=== PATIENT | female | born 1950 | race Caucasian/White ===

== ENCOUNTER → 2018-03-14 | Outpatient (CLI) | payer MEDICARE ==
[~2018-03-14] MED LIST: REGADENOSON 0.4 MG/5 ML SYR IV ONE; SINCALIDE 3 MCG/VIAL INJ ONE
--- NOTE | 2018-03-15 09:49 | Cardiology Report ---
DATE OF STUDY: March 14, 2018 LEXISCAN NUCLEAR STRESS TEST INDICATIONS: Chest pain. DESCRIPTION OF PROCEDURE: After informed consent, patient was brought to the stress lab. She was given 11 mCi of technetium-99 Myoview, and myocardial perfusion SPECT images in the horizontal and short axis, vertical and long axis. Subsequently, patient was given 0.4 mg Lexiscan over 10 seconds. Patient was given 33 mCi of technetium-99 Myoview, and myocardial perfusion SPECT images obtained in the horizontal and short axis, and vertical and long axis. Gaited images were also obtained. Patient tolerated the procedure without any complications. REPORT: Baseline EKG shows sinus rhythm at 73 beats per minute. Normal axis. Normal intervals. Nonspecific ST-T changes. PARAMETERS: Resting heart rate is 73 beats per minute. Maximum heart rate is 100 beats per minute. Resting blood pressure was 144/62 mmHg. Maximum blood pressure 157/63 mmHg. REASON FOR TERMINATION: End-point attained. INTERPRETATION 1. Negative chest pain. 2. Negative arrhythmias. 3. Blood pressure response consistent with Lexiscan. 4. No significant ST-T changes seen during Lexiscan infusion compared to baseline. 5. Analysis and SPECT images reveals uniform radioisotope uptake in all segments without any significant perfusion defects. CONCLUSION 1. No evidence of significant ischemia or infarction on this study. 2. No wall motion abnormalities. 3. Overall ejection fraction is 80%. Job#: [id number] JOANNE
== END ==
LOC: NM 08:15
DX: R07.2 Precordial pain (principal)
CPT/HCPCS: 78452; 93017; A9502; J2805